=== PATIENT | female | born 1970 | race Caucasian/White ===

== ENCOUNTER 2017-05-22 17:15 | Inpatient (IN) | payer MEDICAID ==
[~2017-05-22] VITALS: Ht 160 cm; Wt 65.9 kg
[2017-05-22 18:09] LABS: BASOPHIL % 0.6 % (0-2); PLATELET COUNT 195 x10^3mcL (130-400)
[2017-05-22 18:13] LABS: CALCIUM 8.9 mg/dL (8.5-10.1); CARBON DIOXIDE 24.3 mmol/L (21-32); CHLORIDE SERUM 101 mmol/L (98-107); CREATININE SERUM 0.6 mg/dL (0.6-1.0); GFR1 > 60 mL/min; GLUCOSE SERUM 351 mg/dL (74-106); POTASSIUM SERUM 3.6 mmol/L (3.5-5.1); SODIUM SERUM 135 mmol/L (136-145)
[2017-05-22 18:17] LABS: ALBUMIN 3.6 g/dL (3.4-5.0); ALKALINE PHOSPHATASE 176 U/L (46-116); ALT/SGPT 79 U/L (14-59); AST/SGOT 52 U/L (15-37); BILIRUBIN TOTAL 0.3 mg/dL (0.20-1.00); TOTAL PROTEIN, SERUM 7.7 g/dL (6.4-8.2)
[2017-05-22] MEDS ORDERED: PROVENTIL0.09 MG/A1 (18:56)
[2017-05-22] MEDS ORDERED: METFORMIN HCL500 MG (18:56)
[2017-05-22 20:17] LABS: FREE T4 1.14 ng/dL (0.76-1.46); FREE THYROXINE INDEX 2.9 ug/dL (1.4-4.5); T4(THYROXINE) 7.5 ug/dL (4.7-13.3)
[2017-05-22 20:18] LABS: T3 TOTAL 0.82 ng/mL
[2017-05-22 20:50] VITALS: BP 130/73
[2017-05-22 20:57] VITALS: Ht 160 cm; Wt 65.9 kg
[2017-05-22 21:13] VITALS: BP 130/73
[2017-05-22 21:55] LABS: CHOLESTEROL/HDL RATIO 3.6; PHOSPHOROUS 3.5 mg/dL (2.5-4.9)
[2017-05-22 23:29] VITALS: BP 119/59
[2017-05-22 23:31] LABS: UA SPECIFIC GRAVITY 1.025 (1.005-1.035); microscopic required? YES; urine erythrocyte 1+ (NEGATIVE)
[2017-05-22 23:40] LABS: AMPHETAMINE QUAL UR NONE DETECTED (NEG <=1000)
[2017-05-23 06:18] VITALS: BP 91/58
[2017-05-23 06:42] LABS: BASOPHIL % 0.5 % (0-2); PLATELET COUNT 187 x10^3mcL (130-400)
[2017-05-23 06:52] LABS: RED CELL DISTRIBUTION WIDTH 15.6 % (11.5-14.5)
[2017-05-23 07:06] LABS: CALCIUM 8.3 mg/dL (8.5-10.1); CARBON DIOXIDE 24.7 mmol/L (21-32); CHLORIDE SERUM 105 mmol/L (98-107); CREATININE SERUM 0.5 mg/dL (0.6-1.0); GFR1 > 60 mL/min; GLUCOSE SERUM 245 mg/dL (74-106); MAGNESIUM 1.8 mg/dL (1.8-2.4); PHOSPHOROUS 3.9 mg/dL (2.5-4.9); POTASSIUM SERUM 3.8 mmol/L (3.5-5.1); SODIUM SERUM 138 mmol/L (136-145)
[2017-05-23 09:43] VITALS: BP 111/55
[2017-05-23 14:09] VITALS: BP 117/64
[2017-05-23 16:54] VITALS: BP 111/59
[2017-05-23 20:00] VITALS: BP 115/64
[2017-05-23 21:33] VITALS: BP 113/69
[2017-05-24 05:43] VITALS: BP 126/74
[2017-05-24 06:24] LABS: BASOPHIL % 0.5 % (0-2); PLATELET COUNT 178 x10^3mcL (130-400)
[2017-05-24 06:46] LABS: CALCIUM 8.8 mg/dL (8.5-10.1); CARBON DIOXIDE 28.1 mmol/L (21-32); CHLORIDE SERUM 105 mmol/L (98-107); CREATININE SERUM 0.5 mg/dL (0.6-1.0); GFR1 > 60 mL/min; GLUCOSE SERUM 292 mg/dL (74-106); POTASSIUM SERUM 3.8 mmol/L (3.5-5.1); SODIUM SERUM 139 mmol/L (136-145)
[2017-05-24 09:00] VITALS: BP 115/72
[2017-05-24 11:20] VITALS: BP 115/72
[2017-05-24 13:56] VITALS: BP 118/68
[2017-05-24] MEDS ORDERED: LIPI10 PO (15:49)
[2017-05-24] MEDS ORDERED: METFORMIN HCL1000 MG PO (15:50)
[2017-05-24] MEDS ORDERED: GOOD SENSE ASPI81 M3 PO (15:51)
[2017-05-24] MEDS ORDERED: LANTI SQ (15:58)
[2017-05-24] MEDS ORDERED: PROAIR HFA8.5 GM IH (15:59)
[2017-05-24 16:52] VITALS: BP 120/68
[2017-05-24] MEDS ORDERED: LOVASTATIN20 MG PO (17:28)
== END 2017-05-24 17:53 | disposition home or self-care (01) | DRG 203 ==
LOC: ED 17:15 → DU 18:59
PROVIDERS: Emergency Medicine; Student in an Organized Health Care Education/Training Program; ADMIT Family Medicine Sports Medicine
DX: M94.0 Chondrocostal junction syndrome [Tietze] (principal); N17.0 Acute kidney failure with tubular necrosis; E11.51 Type 2 diabetes mellitus with diabetic peripheral angiopathy without gangrene; E11.65 Type 2 diabetes mellitus with hyperglycemia; R55 Syncope and collapse; E78.5 Hyperlipidemia, unspecified; J45.909 Unspecified asthma, uncomplicated; D50.9 Iron deficiency anemia, unspecified; Z68.25 Body mass index [BMI] 25.0-25.9, adult; Z79.84 Long term (current) use of oral hypoglycemic drugs
CPT/HCPCS: 82962; 83880; 84439; 90658; 94150; J1885; J2270; J2405; J7030; J7620; J8597; Q0092

== ENCOUNTER 2019-09-03 17:45 | Inpatient (IN) | payer MEDICAID ==
[~2019-09-03] VITALS: Ht 157.5 cm; Wt 55.8 kg
[~2019-09-03 17:45] MED LIST: GOOD SENSE ASPI81 M3 PO; LANTI SQ; LIPI10 PO; LOVASTATIN20 MG PO; METFORMIN HCL1000 MG PO; METFORMIN HCL500 MG; PROAIR HFA8.5 GM IH; PROVENTIL0.09 MG/A1
--- NOTE | 2019-09-03 19:02 | NUR ---
PER PT STS THAT SHE HAS BEEN HAVING JOINT PAIN, FLANK PAIN,HEADACHE SINCE THURSDAY. PT STS THAT SHE FEELS LIKE HER "SUGAR IS HIGH" WHEN SHE FEELS THIS WAY. PT DENIES ANY DYSURIA,FREQUENCY. PT IS AAOX4. SKINS ARE PINK WARM DRY. OT STS THAT SHE IS COMPLIANT WITH HER METFORMIN/INSULIN. PER PT STS THAT SHE FEELS FATIGUED. PER PT STS THAT SHE HAS NOT CHECKED HER BG TODAY. PT PLACED ON CM. VSS. RESP E/U. WILL CONTINUE TO [facility].
--- NOTE | 2019-09-03 19:22 | NUR ---
RECEIVED SBAR FROM CAIN MARRERO. PT AWAKE AND ALERT, IN SUPINE POSITION ON [place]. RESP E/U. WILL CONTIUE POC.
--- NOTE | 2019-09-03 19:28 | NUR ---
REPORT GIVEN TO PARTHA BARLOW TO ASSUME CARE OF PT. PARTHA BARLOW INFORMED NO END TIMES ON NS FLUIDS.
[2019-09-03 19:45] LABS: UA SPECIFIC GRAVITY <=1.005 (1.005-1.035); microscopic required? YES; urine erythrocyte 1+ (NEGATIVE)
--- NOTE | 2019-09-03 19:52 | NUR ---
XRAY AT BEDSIDE.
[2019-09-03 19:58] LABS: PLATELET COUNT 181 x10^3mcL (130-400); RED CELL DISTRIBUTION WIDTH 14.3 % (11.5-14.5)
[2019-09-03 20:01] LABS: BASOPHIL % 0 % (0-2)
[2019-09-03 20:04] LABS: CARBON DIOXIDE 26.6 mmol/L (21-32); CHLORIDE SERUM 94 mmol/L (98-107); CREATININE SERUM 0.7 mg/dL (0.6-1.0); GFR1 > 60 mL/min; GLUCOSE SERUM 448 mg/dL (74-106); POTASSIUM SERUM 4.2 mmol/L (3.5-5.1); SODIUM SERUM 128 mmol/L (136-145); TOTAL PROTEIN, SERUM 7.8 g/dL (6.4-8.2)
[2019-09-03 20:05] LABS: ALKALINE PHOSPHATASE 156 U/L (46-116); ALT/SGPT 17 U/L (14-59); AST/SGOT 16 U/L (15-37); BILIRUBIN TOTAL 1.17 mg/dL (0.20-1.00); CALCIUM 8.7 mg/dL (8.5-10.1)
--- NOTE | 2019-09-03 22:04 | NUR ---
DR LEUNG AT [facility] TO SPEAK WITH PATIENT.
[2019-09-03] MEDS ORDERED: FORTAMET500 M1 PO (22:13)
--- NOTE | 2019-09-03 23:05 | NUR ---
REPORT GIVEN TO CAIN SALCEDO TO ASSUME CARE.
[2019-09-03 23:28] VITALS: BP 114/74
[2019-09-03 23:39] LABS: AMPHETAMINE QUAL UR NONE DETECTED (See below)
--- NOTE | 2019-09-03 23:41 | NUR ---
RECIEVED PT FROM ER, PT ADMIT FOR DM OUT OF CONTROL, GENERALIZED WEAKNESS, PT IS A/O X4, VERBAL RESPONSIVE. LUNG SOUND CLEAR BILATERAL, NO COUGH, NO SOB, PT IS ON TELE 24, NSR, DENY ANY CHEST PAIN OR DISCOMFORT, BOWEL SOUND PRESENT ALL 4 QUADRANTS, NO DISTENTION, NO TENDER. PEDAL PULSE PRESENT BOTH FEET, NO EDEMA, IV AT RIGHT AC, NO LEAKING, NO INFILTRATION. ALL ADLS ASSIST, ALL NEED MET, CALL LIGHT IN REACH, WILL CONTINUE TO MONITOR.
[2019-09-04 06:10] VITALS: BP 122/72
--- NOTE | 2019-09-04 06:23 | NUR ---
TYLENOL GIVEN FOR HEADACHE.
--- NOTE | 2019-09-04 07:00 | NUR ---
PT RESTING WITH EYES CLOSED. NO SOB ON ROOM AIR. NO FACIAL GRIMACING. NO DISTRESS NOTED. SAFETY MEASURES MAINTAINED. CALL LIGHT WITHIN REACH. WILL ENDORSE CONTINUITY OF CARE TO ONCOMING RN.
[2019-09-04 07:03] LABS: BASOPHIL % 0.2 % (0-2); PLATELET COUNT 151 x10^3mcL (130-400); RED CELL DISTRIBUTION WIDTH 14.4 % (11.5-14.5)
--- NOTE | 2019-09-04 07:10 | NUR ---
RECIEVED PT RESTING IN BED WITH NO C/O OF PAIN OR DISTRESS. A/O X4 WITH NO CHAMORRO OR DIZZINESS. TELE #24 CONNECTED TO PT, DENIES ANY CP OR PRESSURE.NS 150ML/HR RUNNING IN RAC, CDI AND PATENT. SAFETY PRECAUTIONS IN PLACE, CALL LIGHT WITHIN REACH, WILL MONITOR.
[2019-09-04 07:13] LABS: CARBON DIOXIDE 22.1 mmol/L (21-32); CHLORIDE SERUM 101 mmol/L (98-107); CREATININE SERUM 0.4 mg/dL (0.6-1.0); GFR1 > 60 mL/min; GLUCOSE SERUM 280 mg/dL (74-106); POTASSIUM SERUM 3.4 mmol/L (3.5-5.1); SODIUM SERUM 135 mmol/L (136-145)
[2019-09-04 07:14] LABS: MAGNESIUM 1.6 mg/dL (1.8-2.4); PHOSPHOROUS 2.1 mg/dL (2.5-4.9)
[2019-09-04 08:20] VITALS: BP 134/79
--- NOTE | 2019-09-04 09:00 | NUR ---
DR CHILDERS NOTIFIED ABOUT POTASSIUM LEVEL OF 3.4 AND CALCIUM OF 8.0, NO NEW ORDERS GIVEN. COVERAGE PO GIVEN PER EMAR FOR MAGNESIUM AND PHOSPHATE.
--- NOTE | 2019-09-04 11:54 | NUR ---
NORCO GIVEN PER EMAR FOR C/O 03/26 CHAMORRO PAIN, WILL REASSESS.
[2019-09-04 13:06] VITALS: BP 159/55
--- NOTE | 2019-09-04 16:44 | NUR ---
NORCO GIVEN PER EMAR FOR C/O 03/26 CHAMORRO , WILL REASSESS.
[2019-09-04 17:30] VITALS: BP 145/69
--- NOTE | 2019-09-04 17:38 | NUR ---
TYLENOL GIVEN PER EMAR FOR ORAL TEMP OF 102.9. DR CHILDERS AT BEDSIDE ASSESSING PT AND DISCUSSING POC. WILL MONITOR.
[2019-09-04 18:20] LABS: BASOPHIL % 0.5 % (0-2); PLATELET COUNT 173 x10^3mcL (130-400); RED CELL DISTRIBUTION WIDTH 13.7 % (11.5-14.5)
--- NOTE | 2019-09-04 18:54 | NUR ---
PT RESTING IN BED WITH INTERMITTENT C/O CHAMORRO, MEDICATED PER EMAR. A/O X4 WITH NO N/V OR DIZZINESS. TELE #24 CONNECTED TO PT, DENIES ANY CP OR PRESSURE. NS 150ML/HR RUNNING IN RAC, CDI AND PATENT. SAFETY PRECAUTIONS IN PLACE, CALL LIGHT WITHIN REACH, WILL ENDORSE TO NIGHT NURSE.
--- NOTE | 2019-09-04 19:55 | NUR ---
RECEIVED REPORT FROM DAY SHIFT RN. PT RESTING IN BED COMFORTABLY. AA&O X4. NO SOB ON ROOM AIR. BREATHING EVEN AND UNLABORED. NO N/V. NO DISTRESS NOTED. IV TO RAC, INTACT. SAFETY MEASURES IN PLACE. BED IN LOWEST POSITION. SIDE RAILS UP X2. DEMONSTRATED HOW TO USE THE CALL LIGHT FOR ASSISTANCE. CALL LIGHT WITHIN REACH.
[2019-09-04 21:19] VITALS: BP 107/72
--- NOTE | 2019-09-04 22:56 | NUR ---
PT C/O HEADACHE 03/26. TORADOL GIVEN.
--- NOTE | 2019-09-05 04:30 | NUR ---
ZOFRAN GIVEN FOR NAUSEA/VOMITING.
--- NOTE | 2019-09-05 05:42 | NUR ---
C/O HEADACHE 04/26. BP 121/61 HR 121 RR 18 TEMP 103.0 SPO2 [address] MANZANO MADE AWARE[address] MEDICATED WITH TORADOL PER ORDER.
[2019-09-05 05:49] VITALS: BP 121/61
[2019-09-05 06:44] LABS: PLATELET COUNT 158 x10^3mcL (130-400); RED CELL DISTRIBUTION WIDTH 14.2 % (11.5-14.5)
[2019-09-05 06:52] LABS: BASOPHIL % 0 % (0-2)
--- NOTE | 2019-09-05 07:00 | NUR ---
PT RESTING WITH EYES CLOSED. BREATHING EVEN AND UNLABORED ON ROOM AIR. NO FACIAL GRIMACING. NO DISTRESS NOTED. RECHECKED TEMP 98.6. SAFETY MEASURES MAINTAINED. ALL NEEDS ATTENDED TO. CALL LIGHT WITHIN REACH. WILL ENDORSE CONTINUITY OF CARE TO DAY SHIFT RN.
--- NOTE | 2019-09-05 07:14 | NUR ---
RECEIVED PATIENT AWAKE/ALERT IN BED, NO DISTRESS NOTED. REPORT HEADACHE IS BETTER AT THIS TIME. TELE #24 ST W/ HR 101. IV TO LFA INTACT AND INFUSING W/ NS @ 80ML/HR, POC EXPLAINED. CONT TO MONITOR.
[2019-09-05 08:25] VITALS: BP 92/53
[2019-09-05 09:09] LABS: SODIUM SERUM 131 mmol/L (136-145)
[2019-09-05 09:12] LABS: CARBON DIOXIDE 22.2 mmol/L (21-32); CHLORIDE SERUM 96 mmol/L (98-107); POTASSIUM SERUM 2.7 mmol/L (3.5-5.1)
[2019-09-05 09:13] LABS: CALCIUM 8.5 mg/dL (8.5-10.1); CREATININE SERUM 0.4 mg/dL (0.6-1.0); GFR1 > 60 mL/min; GLUCOSE SERUM 208 mg/dL (74-106); MAGNESIUM 1.4 mg/dL (1.8-2.4); PHOSPHOROUS 1.9 mg/dL (2.5-4.9)
--- NOTE | 2019-09-05 09:25 | NUR ---
PATIENT RESTING IN BED NO DISTRESS NOTED, ALL PO MEDS ADMINISTERED AND TOLERATED. REPORT TO DR. CHILDERS OF K 2.7 WITH NEW ORDER FOR KRIDER. DTR REMAIN AT BEDSIDE. CONT TO MONITOR.
--- NOTE | 2019-09-05 09:49 | NUR ---
PATIENT RESTING IN BED NO DISTRESS NOTED, VANCOMYCIN IVPB INFUSING AT 130ML/HR TO LFA IV PATENT. NEEDS MET. CONT TO MONITOR.
--- NOTE | 2019-09-05 10:37 | NUR ---
PATIENT RESTING IN BED C/O HEADACHE 05/26, ASKING FOR TORADOL INFORM PATIENT IS NOT DUE, PAGE DR. CHILDERS FOR ALTERNATIVE. TYLENOL 650MG PO ADMINISTERED. CONT TO MONITOR
--- NOTE | 2019-09-05 11:09 | NUR ---
TORADOL 30MG IVP X 1 GIVEN FOR 10/10 CHAMORRO, PATIENT RESTING IN BED, CONT TO MONITOR.
--- NOTE | 2019-09-05 11:30 | NUR ---
DR. BENSON WITH RESIDENTS ROUNDING, PT IN BED NO DISTRESS NOTED, FACE FLUSH NOTED, CHECK T 98.6 DR. BENSON DISCUSS WITH PT AND DTR OF REPEAT CT HEAD W/ CONTRAST AND TELE NEURO CONSULT.
--- NOTE | 2019-09-05 12:17 | NUR ---
PATIENT RESTING IN BED NO DISTRESS NOTED, REPORT CHAMORRO 02/23 AFTER MEDICATED. KRIDER 40MEQ IV W/ LIDOCAINE INFUSING AT 65ML/HR, K 2.7 AND IMITREX 6MG SQ AND DECADRON 10MG IVP ADMINISTERED. INFORM PATIENT WILL ATTEMPT NEW IV SITE FOR CT HEAD W/ CONT. PATIENT VERBALIZE UNDERSTAND. DTR REMAIN AT BEDSIDE.
[2019-09-05 12:34] VITALS: BP 94/54
--- NOTE | 2019-09-05 12:42 | NUR ---
RESTART NEW IV TO LAC #[address] HEAD W/ CONT. PATIENT OFF FLOOR VIA WC WITH TECH FOR CT AT THIS TIME.
--- NOTE | 2019-09-05 13:14 | NUR ---
PATIENT BACK FROM CT IN BED C/O SENSITIVE TO LIGHT, HER HEADACHE IS 7/10 AT THIS TIME. CONNECTED TO IV AND CONT KRIDER AT 65ML/HR. LUNCH TRAY GIVEN TO PATIENT. CONT TO MONITOR.
--- NOTE | 2019-09-05 15:56 | NUR ---
Discount pharmacy card and list to low cost medical clinics given to patient by Meng Nava.
--- NOTE | 2019-09-05 17:23 | NUR ---
PATIENT RESTING IN BED NO COMPLAIN, NO DISTRESS NOTED. GAVE REGULAR 9 UNIT SQ FOR BS 288, DUE MEDS GIVEN. MGRIDER 1GM IVPB INFUSING TO LFA IV PATENT. SETUP TELE NEURO AND SPOKE TO AMMY FOR CONSULT.
[2019-09-05 17:31] VITALS: BP 94/59
--- NOTE | 2019-09-05 17:42 | NUR ---
FOR TELE NEURO DR. PAREDES RECOMMENDED SPINAL TAP TO R/O ENCEPHALITIS.
--- NOTE | 2019-09-05 17:49 | NUR ---
DR. CHILDERS WAS AWARE TELE NEURO DR. PAREDES RECOMMENDED SPINAL TAP TO R/O ENCEPHALITIS AND CN WAS INFORM.
--- NOTE | 2019-09-05 18:03 | NUR ---
P.T. NOTES P.T. EVAL COMPLETED; ENDORSED TO NURSING.
--- NOTE | 2019-09-05 18:25 | NUR ---
PATIENT SITTING UP IN BED EATING HER DINNER, NO COMPLAIN. CALL LIGHT WITHIN REACH.
--- NOTE | 2019-09-05 19:20 | NUR ---
PT SEEN, RESTING IN BED, ALERT AND ORIENTED, DENIES HEADACHE OR DIZZINESS, BREATHING EVEN AND UNLABORED, LUNG SOUNDS CLEAR, ON ROOM AIR WITH NO RESP DISTRESS NOTED, ON TELE#24 STA, DENIES CHEST PAIN, PULSES PALPABLE, NO EDEMA NOTED, MILD GENERALIZED WEAKNESS, ABD SOFT AND FLAT WITH ACTIVE BS, NO BM AT THIS TIME, DENIES ABD PAIN, VOIDING FREELY, DR BEARD MADE AWARE OF THAT LUMBAR PUNCTURE WILL NOT BE DONE TIL TOMORROW AM.
[2019-09-05 22:14] VITALS: BP 94/54
--- NOTE | 2019-09-06 00:32 | NUR ---
DR BABIN AT BEDSIDE AND SULAIMAN PT, NEW ORDER RECEIVED THAT CHANGED ROCEPHIN 1GM DAILY IVPB AND DC ZOVIRAX AND VANCOMYCIN, ORDERS CARRIED OUT.
--- NOTE | 2019-09-06 05:56 | NUR ---
PT ASLEEP BUT EASILY AROUSABLE, SLEPT MOST ON AND OFF WHOLE NIGHT, STILL C/O OF HEADACHE WHILE AWAKE, TORADOL 30MG VIA IVP GIVEN, PT ACCIDENTALLY PULLED OUT THE IV TO LFA, CATH INTACT, IVF INFUSING WELL TO LAC, MORNING BLOOD SUAGR:313 MG/DL WITH RISS 12 UNITS, NO DISTRESS NOTED, WILL KEEP TO MONITOR.
[2019-09-06 06:25] VITALS: BP 102/53
[2019-09-06 06:55] LABS: PLATELET COUNT 206 x10^3mcL (130-400); RED CELL DISTRIBUTION WIDTH 14.3 % (11.5-14.5)
--- NOTE | 2019-09-06 07:07 | NUR ---
BEDSIDE REPORT GIVEN TO PATTIE-RN, ALL QUESTIONS ANSWERED AND CONCERNS ADDRESSED.
[2019-09-06 07:15] LABS: CARBON DIOXIDE 24.4 mmol/L (21-32); CHLORIDE SERUM 100 mmol/L (98-107); CREATININE SERUM 0.5 mg/dL (0.6-1.0); GFR1 > 60 mL/min; GLUCOSE SERUM 314 mg/dL (74-106); POTASSIUM SERUM 3.3 mmol/L (3.5-5.1); SODIUM SERUM 134 mmol/L (136-145)
[2019-09-06 07:16] LABS: CALCIUM 9.2 mg/dL (8.5-10.1); PHOSPHOROUS 3.7 mg/dL (2.5-4.9)
[2019-09-06 07:25] LABS: BASOPHIL % 0 % (0-2)
--- NOTE | 2019-09-06 08:13 | NUR ---
RECEIVED ORDERS FOR LP UNDER FLUORO. PER DR FITCH WOULD NEED DOCUMENTATION OF UNSUCCESSFUL PRIOR ATTEMPT BEFORE RESORTING TO FLUORO EXPOSURE, UNDER "ALARA" GUIDELINES. PATIENT'S NURSE PATTIE NOTIFIED, WILL CONSULT WITH PRIMARY CARE TEAM DURING ROUNDS.
--- NOTE | 2019-09-06 08:29 | NUR ---
NOTIFIED EUGENIA WAN REGARD LUMBAR PUNCTURE ORDER PER [facility]. WANT DOCTOR TO PERFORM LP FIRST BEFORE IR.
[2019-09-06 09:14] VITALS: BP 117/70
--- NOTE | 2019-09-06 09:29 | NUR ---
PATIENT RESTING IN BED AWAKE ALERT IN BED WITH DTR PRASHANT, C/O 04/26 HEADACHE, NO DISTRESS NOTED. ALL DUE MEDS GIVEN. ROCEPHIN IVPB INFUSING AT 100ML/HR, IV PATENT. WILL MEDICATE FOR PAIN.
--- NOTE | 2019-09-06 09:32 | NUR ---
DTR PRASHANT TRANSLATE LUMBAR PUNCTURE TO PATIENT, PATIENT AGREE WITH PROCEDURE AND SIGN THE CONSENT, NO FURTHER QUESTIONS.
--- NOTE | 2019-09-06 12:17 | NUR ---
PATIENT RESTING IN BED C/O 8/10 CHAMORRO, TORADOL IVP GIVEN, DR. CHILDERS CHANGE INSULIN REGIME. GAVE 5 UNITS WITH 12 UNITS ISS REGULAR SQ FOR BS 337. NEEDS MET.
[2019-09-06 12:27] VITALS: BP 96/59
--- NOTE | 2019-09-06 13:42 | NUR ---
PATIENT SAT UP IN CHAIR, DR. CHILDERS AND ER DR. VALDERRAMA AT BEDSIDE PERFORM LUMBAR PUNCTURE ON PATIENT. KIT AND SUPPLIES AT BEDSIDE. MEDICAL STUDENTS AT BEDSIDE AND RN'S. LIDOCAINE OBTAIN AND GIVEN TO DOCTORS. LP SITE TO LOWER BACK C/D/I COVER WITH BANDAIDS. ASSIST PATIENT TO BED, INSTRUCT TO LAY DOWN FOR COUPLE HOURS. DTR REMAIN AT BEDSIDE.
--- NOTE | 2019-09-06 14:39 | NUR ---
DR. CHILDERS IS PAGED TO MADE AWARE THAT BLOOD CULTURE RESULT IS GRAM NEGATIVE BACILLI. WAITING FOR CALLBACK
--- NOTE | 2019-09-06 14:50 | NUR ---
PRIMARY NURSE PATTIE MADE AWARE THAT BLOOD CULTURE RESULT IS GRAM NEGATIVE BACILLI, NO CALLBACK YET FROM DR. CHILDERS.
--- NOTE | 2019-09-06 15:06 | NUR ---
PATIENT RESTING IN BED, C/O LOWER BACK THROBBING PAIN AND HEADACHE. WILL MEDICATE PATIENT FOR PAIN.
[2019-09-06 15:15] LABS: TOTAL PROTEIN CSF 38.2 mg/dL (15-45)
[2019-09-06 15:46] LABS: APPEARANCE CSF CLEAR; COLOR CSF COLORLESS; RBC CSF 3 /cumm (0); WBC CSF 2 /cumm (0-5)
[2019-09-06 16:44] VITALS: BP 94/49; BP 94/59
--- NOTE | 2019-09-06 17:28 | NUR ---
MEDICATED FOR 9/10 CHAMORRO AND GAVE 14 UNITS REGULAR INSULIN SQ FOR BS 270. PATIENT RESTING IN BED, LP SITE C/D/I NO BLEEDING NOTED, INFORM PATIENT AND DTR THAT DOCTOR PLACE PATIENT ON DROPLET ISOLATION PRECAUTIONS. NEEDS MET.
--- NOTE | 2019-09-06 18:33 | NUR ---
PATIENT RESTING IN BED WITH DTR AT BEDSIDE, REPORT CHAMORRO IS TOLERABLE. LOWER BACK LP SITE BANDAID C/D/I NOTED, CARE ENDORSE TO ON-COMING SHIFT.
--- NOTE | 2019-09-06 19:59 | NUR ---
PT SEEN, ASLEEP BUT EASILY AROUSABLE, ALERT AND ORIENTED X 4 AND VERY VERBALLY RESPONSIVE, C/O OF HEADACHE AT TIME, BREATHING EVEN AND UNLABORED, LUNG SOUNDS CLEAR, ON ROOM AIR WITH NO RESP DISTRESS NOTED, ON TELE#24 NSR/ST, DENIES CHEST PAIN, IVF INFUSING WELL, PULSES PALPABLE, NO EDEMA NOTED, MILD GENERALIZED WEAKNESS, ABD SOFT AND FLAT WITH ACTIVE BS, NO BM AT THIS TIME, VOIDING FREELY, NO DISTRESS NOTED, WILL KEEP TO MONITOR.
[2019-09-06 20:29] VITALS: BP 105/59
--- NOTE | 2019-09-06 23:45 | NUR ---
DR BABIN IS HERE, ALL UPDATES GIVEN, NEW ORDER RECEIVED TO DC TAMIFLU PO AND DC DROPLET ISOLATION, ORDERS CARRIED OUT.
--- NOTE | 2019-09-07 04:04 | NUR ---
PT AWAKE AND C/O OF BACK PAIN, NECK PAIN AND HEADACHE 05/26, MORPHINE 2MG VIA IVP ADMINISTERED AND ZOFRAN 4MG VIA IVP GIVEN FOR N/V.
[2019-09-07 05:39] VITALS: BP 106/67
[2019-09-07 06:58] LABS: CALCIUM 8.6 mg/dL (8.5-10.1); CARBON DIOXIDE 25.9 mmol/L (21-32); CHLORIDE SERUM 102 mmol/L (98-107); CREATININE SERUM 0.5 mg/dL (0.6-1.0); GFR1 > 60 mL/min; GLUCOSE SERUM 141 mg/dL (74-106); MAGNESIUM 1.5 mg/dL (1.8-2.4); PHOSPHOROUS 3.8 mg/dL (2.5-4.9); POTASSIUM SERUM 3.1 mmol/L (3.5-5.1); SODIUM SERUM 138 mmol/L (136-145)
--- NOTE | 2019-09-07 07:27 | NUR ---
BEDSIDE REPORT GIVEN TO UCHE-CAIN, ALL QUESTIONS ANSWERED AND CONCERNS ADDRESSED.
--- NOTE | 2019-09-07 07:45 | NUR ---
RECEIVED PATIENT RESTING IN BED, NO ACUTE DISTRESS NOTED. PATIENT C/O OF CONSTANT CHAMORRO, PATIENT STATES IT IS TOLERABLE A THIS TIME. PATIENT REPORT INTERMITENT PAIN TO BACK, REPOSITION PATIENT FOR COMFORT. TELE MONITOR IN PLACE, PATIENT DENIES CP. DENIES SOB, LUNG SOUNDS CTA. NS IV INFUSING TO LAC AT 80ML/HR, IV SITE CDI&PATENT. CALL LIGHT WITHIN REACH, BED IN LOW POSITION, WILL CONTINUE TO MONITOR.
[2019-09-07 09:21] VITALS: BP 92/49
[2019-09-07 10:35] LABS: BASOPHIL % 0.4 % (0-2); PLATELET COUNT 244 x10^3mcL (130-400)
[2019-09-07 10:40] LABS: RED CELL DISTRIBUTION WIDTH 14.9 % (11.5-14.5)
--- NOTE | 2019-09-07 11:30 | NUR ---
DR. CHILDERS MADE AWARE PATIENT K WAS 3.1 AND MAG WAS 1.5, NO FURTHER ORDERS AT THIS TIME. WILL CARRY OUT ANY NEW ORDERS PLACED.
--- NOTE | 2019-09-07 12:17 | NUR ---
Initial Nutrition Assessment: 226T/A ALINA HO IA HR Dx: DM out of control, generalized weakness PMHx: DM and Asthma PSHx: Labs: K 3.1L, BG 141H ALB 3.0L, A1C 12.8H, WBC 13.7H Meds: Colace, D 50%, Humulin, lantus, morphine, zofran Diet: CCHO PO intake since admission: (09/07) breakfast 100% (09/06) dinner, breakfast 70%, lunch 100%, (09/05) dinner 100%, breakfast 40%, (09/04) lunch 60% Ht: 157.48 cm (62") Wt: 55.7 kg (122#) BMI: 22.5 kg/m2 Bed scale: 122# IBW: 110# (50 kg) %IBW: 110 UBW: 142# Age: 48/F Food Allergies: NKFA Skin: intact Jamin: 22 Edema: none GI: Last BM: 09/05 Per H&P, Pt is a 48 years old female with PMH of DM and Asthma who brought from home to ED due to generalized weakness for [address] Note (09/07): Patient was alert and oriented but only Pashto speaking. CLIENT PORTFOLIO MANAGER assisted with translation. Patient said she lost 20# in 1.5 months. Patient said that she tries to follow a diabetic diet. Patient said that she has some stress in life. FNS received consult on 09/05 for 'weight loss'. Per progress note (09/06), blood cultures are positive for gram negative bacilli. isolation precautions were ordered, LP was done, CSF studies were sent. Waiting for recommendation from ID. Pt's headache is better today. Pt did not have fevers for past 24 hours. Problem with: N/V/D/C: none Problems with: Chewing: Swallowing: none Current appetite: good Recent wt change: lost 20# x 1.5 months %wt change: 14 (significant) Vitamin/Supplement use: none Special diet at home: diabetic Physical activity: walking Nutrition education given: DM diet education was provided using [facility] handout on 'Type 2 Diabetes Nutrition Therapy'. Concepts like high fiber foods and portion control were discussed. Patient verbalized understanding and did not have any questions at this time. Food-drug interactions: none Education given: n/a Estimated Nutritional Needs Based on current body weight (55.7 kg) Energy: 4682-0593 kcal/day (25-30 kcal/kg for maintenance) Protein: 56-69 g/day (1.0-1.2 g/kg for maintenance) Fluid: 2777-0470 mL/day (1 mL/kcal) Nutrition Diagnosis: 1. Impaired nutrient utilization related to endocrine dysfunction as evidenced by A1C 12.8H Intervention 1. Recommend continuing CCHO diet. 2. Recommend ONS Glucerna OD to supplement PO. 3. Diabetes diet education provided. Discussed with Dr. Proctor. Monitor/Evaluate Goal: PO intake at least 75% of estimated needs Monitor: PO intake, Labs, GI function F/U in 3-5 days as moderate risk
--- NOTE | 2019-09-07 12:17 | NUR ---
1. Recommend continuing [facility] diet. 2. Recommend ONS Glucerna OD to supplement PO. 3. Diabetes diet education provided. Discussed with Dr. Proctor.
[2019-09-07 13:51] VITALS: BP 98/63
--- NOTE | 2019-09-07 15:24 | NUR ---
PATIENT TEMP WAS 101.2, MEDICATED PATIENT WITH TYLENOL PO PER PROTOCOL (SEE EMAR). PROVIDED PATIENT WITH COOLING MEASURES, CALL LIGHT WITHIN REACH. WILL CONTINUE TO MONITOR AND MANAGE PAIN.
--- NOTE | 2019-09-07 17:20 | NUR ---
PATIENT WAS C/O SEVERE HEADACHE, PATIENT BP WAS 95/[address] CHILDERS, DR. CHILDERS WILL PLACE ORDER FOR IMITREX AND A BOLUS FOR PATIENT. WILL HOLD OFF ON GIVING MORPHINE AT THIS TIME. PATIENT AWARE OF PLAN OF CARE. CALL LIGHT WITHIN REACH, BED IN LOW POSITION, WILL CONTINUE TO MONITOR.
[2019-09-07 17:41] VITALS: BP 95/60
--- NOTE | 2019-09-07 18:36 | NUR ---
PATIENT RESTING IN BED AT THIS TIME, NO ACUTE DISTRESS NOTED. PATIENT MEDICATED WITH IMITREX PO FOR SEVERE HEADACHE. DENIES SOB, ON ROOM AIR. NS BOLUS OF 300 ML INFUSING TO RAC AT THIS TIME, IV SITE CDI&PATENT. ALL NEEDS MET AT THIS TIME. WILL CONTINUE TO MONITORM AND ENDORSE REPORT TO NIGHT RN
--- NOTE | 2019-09-07 19:32 | NUR ---
Pt. received from day shift, currently resting in bed asleep. Pt. easily arousable using verbal stimuli, pt. is a/o x3, able to make needs known, able to follow commands, can speak some Greek, primarily Slovenian speaking, has c/o h/a at this time. Will offer medication as ordered. Pt. BP was low as per day shift, 300 mL bolus given, and is currently running with around 150 mL left. Will continue to monitor pt. Otherwise, pt. stable, no c/o of chest pain, n/v. Pt. safety in check, w/ call light placed within reach, pt. educated on when and how to use call light system, bed set at lowest will continue to monitor.
[2019-09-07 20:50] VITALS: BP 101/57
--- NOTE | 2019-09-07 21:49 | NUR ---
Pt. victor manuel held at this time d/t day shift reporting low BS and pt. noted to not be eating much d/t severe h/a. made aware. Pt. also c/o of severe h/a, given toradol as ordered. Will continue to monitor BP. Pt. has no c/o of dizziness at this time, will continue to monitor.
--- NOTE | 2019-09-08 01:25 | NUR ---
Pt. c/o of pain 03/26, in neck, back and head. Will medicate w/ morphine as ordered.
--- NOTE | 2019-09-08 03:20 | NUR ---
Pt. at this time awake and alert, bouts of sleep throughout the night as per pt. Pt. talking on the phone with family member at times throughout shift, able to make needs known, and still c/o h/a. Pt. given toradol, pt. states that it didn't help much. Toradol was given at 2143. Pt. was given Morphine at 0128, pt. resting in bed, comfortable, easily arousable. Will continue to monitor pt. at this time. Lantus was held d/t blood sugar of 90 and pt. noted and reported to not be eating as much d/t h/a. Pt. was given a sandwhich and some jello throughout the shift, will continue to monitor the pt. at this time.
[2019-09-08 05:33] VITALS: BP 122/73
--- NOTE | 2019-09-08 06:30 | NUR ---
Pt. asleep throughout the shift, easily arousable using verbal stimuli. Pt. a/o and able to make needs known and follow command. Pt. c/o same pain throughout shift, medicated with Toradol at 2143 and Morphine at 0128. Will continue to monitor pt. and endorse to next shift RN.
[2019-09-08 07:27] LABS: BASOPHIL % 0.2 % (0-2); PLATELET COUNT 230 x10^3mcL (130-400); RED CELL DISTRIBUTION WIDTH 14.1 % (11.5-14.5)
[2019-09-08 07:45] LABS: CHLORIDE SERUM 98 mmol/L (98-107); CREATININE SERUM 0.5 mg/dL (0.6-1.0); GFR1 > 60 mL/min; GLUCOSE SERUM 283 mg/dL (74-106); POTASSIUM SERUM 3.5 mmol/L (3.5-5.1); SODIUM SERUM 132 mmol/L (136-145)
[2019-09-08 07:46] LABS: CALCIUM 8.8 mg/dL (8.5-10.1); MAGNESIUM 1.7 mg/dL (1.8-2.4); PHOSPHOROUS 3.3 mg/dL (2.5-4.9)
--- NOTE | 2019-09-08 07:50 | NUR ---
RECEIVED PATIENT. IN BED, AWAKE. NO ACUTE RESP DISTRESS NOTED. PATIENT COMPLAINING OF HEADACHE 05/26. REASSURED PT THAT PAIN MEDICATION WILL BE GIVEN IMMEDIATELY POSSIBLE. IV INTACT AND PATENT. CALL LIGHT WITHIN REACH. SAFETY PRECAUTION IN PLACE. FAMILY AT BEDSIDE. WILL CONTINUE TO MONITOR.
--- NOTE | 2019-09-08 08:01 | NUR ---
PATIENT COMPLAINING OF HEADACHE AND BACK PAIN 05/26. MORPHINE 2MG IVP GIVEN. TOLERATED WELL. WILL CONTINUE TO MONITOR.
[2019-09-08 08:57] VITALS: BP 123/71
--- NOTE | 2019-09-08 09:00 | NUR ---
PATIENT IN BED, SLEEPING. EASILY AROUSABLE. PER PATIENT. MORPHINE MEDICATION EFFECTIVELY LOWERED DOWN THE PAIN. NO ACUTE RESP DISTRESS NOTED AT THIS TIME. NO COMPLAINTS OF PAIN NOTED. IV INTACT AND PATENT. NO REDNESS/ SWELLING NOTED. SAFETY PRECAUTION IN PLACE. CALL LIGHT WITHIN REACH. WILL CONTINUE TO MONITOR.
[2019-09-08 12:28] VITALS: BP 123/71
--- NOTE | 2019-09-08 12:44 | NUR ---
PATIENT COMPLAINING OF NECK PAIN AND HEADACHE 10/10 PAIN. TORADOL 30 MG IVP GIVEN. TOLERATED WELL. WILL CONTINUE TO MONITOR. PATIENT HAS POOR APPETITE DUE TO PAIN. PT USUALLY ABLE TO EAT AFTER PAIN SUBSIDES. WILL REASSESS EFFECTIVENES SOF MEDICATION. PT REMAINS ON ROOM AIR. NO ACUTE RESP DISTRESS NOTED. IV INTACT AND PATENT. NO ERYTHEMA/INFILTRATION NOTED. SAFETY PRECAUTION IN PLACE. CALL LIGHT WITHIN REACH. WILL CONTINUE TO MONITOR.
--- NOTE | 2019-09-08 13:07 | NUR ---
DR BELLO MADE AWARE ABOUT BLOOD CULTURE RESULT- POSITIVE FOR KLEBSIELLA PNEUMONIAE ESBL. NO NEW ORDERS RECEIVED. ATTENDING NURSE CIARA MADE AWARE.
--- NOTE | 2019-09-08 13:15 | NUR ---
REASSESSED PAIN. PER PATIENT, TORADOL IVP EFFECTIVELY LOWERED DOWN PAIN LEVEL TO 6/10. NO ACUTE DISTRESS NOTED. WILL CONTINUE TO MONITOR.
--- NOTE | 2019-09-08 15:40 | NUR ---
PATIENT IN BED, STABLE. NO ACUTE RESP DISTRESS NOTED. REMAINS ON ROOM AIR. NO COMPLAINTS OF PAIN AT THIS TIME. ISOLATION REINFORCED DUE TO POSITIVE KLEBSIELLA PNEUMONIAE BLOOD CULTURE RESULTS. PT MADE AWARE. IV INTACT AND PATENT. CALL LIGHT WITHIN REACH. SAFETY PRECAUTION IN PLACE. WILL CONTINUE TO MONITOR.
--- NOTE | 2019-09-08 16:48 | NUR ---
PATIENT COMPLAINING OF HEADACHE 10/10 PAIN. MORPHINE 2MG IVP GIVEN. TOLERATED WELL. WILL CONTINUE TO MONITOR.
[2019-09-08 17:04] VITALS: BP 127/78
--- NOTE | 2019-09-08 18:30 | NUR ---
PATIENT IN BED, SLEEPING. BREATHING EVEN AND UNLABORED. NO ACUTE RESP DISTRESS NOTED. REMAINS ON ROOM AIR. NO COMPLAINTS OF PAIN AT THIS TIME. IV INTACT AND PATENT. NO ERYTHEMA/SWELLING NOTED. SAFETY PRECAUTION IN PLACE. CALL LIGHT WITHIN REACH. WILL ENDORSE CARE TO MINESWEEPING OFFICER NURSE.
--- NOTE | 2019-09-08 19:15 | NUR ---
RECEIVED PT RESTING IN BED, NO ACUTE DISTRESS NOTED. PT AOX4, DENIES DIZZINESS, (+) CHAMORRO (THORBBING), WILL MEDICATE PER ORDER. MEDSURG PT, DENIES CP. PULSES PALPABLE BILAT, DENIES NUMBNESS/TINGLING IN FEET. PT HAS SCATTERED YELLOWISH COLORED BRUISING A VARIOUS SIZES ON BLE. DENIES PAIN. NO EDEMA NOTED. RESP EVEN AND UNLABORED ON RA, DENIES SOB. ABD SOFT, ROUND, DENIES ABD PAIN. PT VOIDS FREELY, DENIES DYSURIA. MILD GENERALIZED WEAKNESS, SKIN INTACT. IV SITE TO THE LAC PATENT, NS @ 80ML/HR. NO REDNESS, SWELLING OR PAIN NOTED. PT ON MERREM, ALL COMFORT AND SAFETY MEASURES PROVIDED FOR, CALL LIGHT WITHIN REACH, BED IN LOWEST POSITION, WILL CONTINUE TO MONITOR.
--- NOTE | 2019-09-08 19:55 | NUR ---
MEDICATED PT WITH TORADOL 30MG IVP, PT STATES ONLY CHAMORRO, BACK PAIN AND NECK SORENESS. PT REQUESITNG TO HAVE AC TURNED ON, CALL LIGHT WITHIN REACH BED IN LOWEST POSITION, WILL CONTINUE TO MONITOR.
[2019-09-08 21:02] VITALS: BP 136/90
--- NOTE | 2019-09-09 03:00 | NUR ---
PT RESTING IN BED, NO S/S OF PAIN NOTED. IV SITE CONTINUES TO INFUSE NS @ 80ML/HR. NO REDNESS, SWELLING OR PAIN NOTED. ALL COMFORT AND SAFETY MEASURES PROVIDED FOR, CALL LIGHT WITHIN REACH, BED IN LOWEST POSITION, WILL CONTINUE TO MONITOR.
--- NOTE | 2019-09-09 05:20 | NUR ---
PT RESTED IN INTERVALS DURING SHIFT, NO ACUTE CHANGES OCCURRING OVERNIGHT. PT DENIES N/V/D DURING SHIFT, REPORTS CHAMORRO COMES BACK INTERMITTENT TO WHICH THE TORADOL HAS WORKED WELL. ALL COMFORT AND SAFETY MEASURES PROVIDED FOR, CALL LIGHT WITHIN REACH, BED IN LOWEST POSITION, WILL CONTINUE TO MONITOR.
--- NOTE | 2019-09-09 05:30 | NUR ---
UPON ASSESSMENT OF PT, PT APPEARS SWEATY AND UNCOMFORTABLE. CHECKED PT GLUCOSE PER REQUEST, PT BLOOD SUGAR= [phone], PER PT ADJUSTED SLIDING SCALE, PT SHOULD BE ACCUCHECK TIDAC. PER DR. GUPTA, OK TO COVER PT WITH SLIDING SCALE FOR NOW WITHOUT INCLUDING THE ADJUSTED ORDER OF 7 UNITS + PER RISS D/T PT RECEIVED LANTUS AT [address] GUPTA, WILL INQUIRE IN MORNING HUDDLE IF PT SHOULD BE ADJUSTED TO ACCUCHECKS ACHS D/T DM OOC. PT CALM AND COOPERATIVE WITH CARE AT THIS TIME, CALL LIGHT WITHIN REACH, BED IN LOWEST POSITION, WILL CONTINUE TO MONITOR.
[2019-09-09 06:24] LABS: BASOPHIL % 0.3 % (0-2); PLATELET COUNT 264 x10^3mcL (130-400); RED CELL DISTRIBUTION WIDTH 14.2 % (11.5-14.5)
[2019-09-09 06:33] VITALS: BP 105/63
[2019-09-09 07:28] LABS: CALCIUM 9.2 mg/dL (8.5-10.1); CARBON DIOXIDE 24.3 mmol/L (21-32); CHLORIDE SERUM 100 mmol/L (98-107); CREATININE SERUM 0.5 mg/dL (0.6-1.0); GFR1 > 60 mL/min; GLUCOSE SERUM 305 mg/dL (74-106); PHOSPHOROUS 3.7 mg/dL (2.5-4.9); POTASSIUM SERUM 4.1 mmol/L (3.5-5.1); SODIUM SERUM 132 mmol/L (136-145)
[2019-09-09 07:29] LABS: MAGNESIUM 1.9 mg/dL (1.8-2.4)
--- NOTE | 2019-09-09 07:45 | NUR ---
ENDORSED ALL CARE TO DAYSHIFT NURSE, ALL QUESITONS AND CONCERNS ADDRESSED, CALL LIGTH WITHIN REACH, BED IN LOWEST POSITION.
--- NOTE | 2019-09-09 07:58 | NUR ---
PATIENT BREAKFAST TRAY IN ROOM. BLOOD SUGAR RESULT 252, ADMINISTERED INSULIN PER SLIDING SCALE AND ADDITIONAL 7UNITS PER ORDER. TOTAL 16UNITS. VERIFIED BY CARINA BARLOW. ASSISTED PATIENT TO SIT UP AND EAT BREAKFAST CALL LIGHT WITHIN REACH
[2019-09-09 08:59] VITALS: BP 121/79
--- NOTE | 2019-09-09 09:15 | NUR ---
ADMINSTERED MEDICATION PER MAR. PATIENT COMPLAINING OF 8/10 HEADACHE. ADMINSTERED TORADOL PER MAR. CALL LIGHT WITHIN REACH
[2019-09-09 11:51] VITALS: BP 129/76
--- NOTE | 2019-09-09 12:48 | NUR ---
DR CHILDERS ORDERED PICC LINE FOR PATIENT. PATIENT SIGNED CONSENT. CHARGE NURSE TO CALL PICC LINE NURSE
--- NOTE | 2019-09-09 14:37 | NUR ---
PATIENT COMPLAINING OF HEADACHE AND LOWER BACK PAIN, NAUSEA AND STATED SHE VOMITED X1. ADMINSITERED PAIN MEDICATION PER OCT. VSS PRIOR TO MEDICIATION. DAUGHTERS IN ROOM. CALL LIGHT WITHIN REACH
[2019-09-09 15:31] VITALS: BP 143/56
--- NOTE | 2019-09-09 15:48 | NUR ---
PATIENT LAYING ON RIGHT SIDE IN BED, FAMILY AT BEDSIDE. STATING THAT HEADACHE HAS REDUCED, BUT STILL FEELING NAUSEATED. ZOFRAN ALREADY ADMINSITERED. ASSISTED TO REPOSITION. CALL LIGHT WITHIN REACH
[2019-09-09 16:56] VITALS: BP 130/86
--- NOTE | 2019-09-09 18:38 | NUR ---
PICC LINE NURSE AT BEDSIDE. TRAY AND SUPPLIES GIVEN. TIME OUT PERFORMED AND VERIFIED. ULTRA SOUND TECH AT BEDSIDE TO ASSIST.
--- NOTE | 2019-09-09 20:00 | NUR ---
PT RECIEVED AAO REG RESP NO SOB V/S STABLE,IV INFUSING WELL WITH THE SITE PATENT AND INTACT,PT ON ISOLATION,KEPT CLEAN AND DRY TO TOUCH,PT HAS MED LINE TO THE LT HAND WITH SITE INTACT,INITIATED USAGE AND SITE PATENT,CALL LIGHT EASY REACHED WILL CONTINUE TO MONITOR.
[2019-09-09 20:54] VITALS: BP 121/80
[2019-09-10 06:01] VITALS: BP 104/59
--- NOTE | 2019-09-10 06:23 | NUR ---
PT HAD A RESTING NIGHT NO CHANGE AT HIS TIME,WILL CONTINUE TO MONITOR.
[2019-09-10 06:40] LABS: BASOPHIL % 0.3 % (0-2); PLATELET COUNT 367 x10^3mcL (130-400); RED CELL DISTRIBUTION WIDTH 14.1 % (11.5-14.5)
[2019-09-10 07:29] LABS: CALCIUM 9.4 mg/dL (8.5-10.1); CHLORIDE SERUM 102 mmol/L (98-107); CREATININE SERUM 0.5 mg/dL (0.6-1.0); GFR1 > 60 mL/min; GLUCOSE SERUM 156 mg/dL (74-106); MAGNESIUM 2.1 mg/dL (1.8-2.4); PHOSPHOROUS 3.8 mg/dL (2.5-4.9); POTASSIUM SERUM 4.4 mmol/L (3.5-5.1); SODIUM SERUM 134 mmol/L (136-145)
--- NOTE | 2019-09-10 07:30 | NUR ---
AAOX4. NO SOB AT RM AIR. DENIES PAIN AT THIS TIME. IVF NSS AT 80 ML/HR. LAC SITE PATENT AND WITHOUT INFILTRATION. NSG ASSESSMENT DONE. FALL AND SAFETY PRECAUTION REINFORCED. WILL CONTINUE TO MONITOR STATUS.
[2019-09-10 08:19] VITALS: BP 98/64
[2019-09-10 12:01] VITALS: BP 108/68
--- NOTE | 2019-09-10 12:30 | NUR ---
NO NEW ACUTE CHANGES IN STATUS. WILL CONTINUE TO MONITOR STATUS.
[2019-09-10 16:24] VITALS: BP 121/80
--- NOTE | 2019-09-10 18:36 | NUR ---
1620-PT DAUGHTER VISITING. PT REPORTED NAUSEA; ZOFRAN GIVEN ORDERED. ALSO C/O HEADACHE; SUMATRIPTAN GIVEN ORDERED. 1830-PT'S APPETITE IS POOR. DAUGHTER REPORTED "CANNOT HOLD THE FOOD DOWN" AND REQUESTED FOR JELLO.NO FURTHER C/O NAUSEA OR PAIN. NOT IN ANY DISTRESS. WILL CONTINUE TO MONITOR STATUS.
--- NOTE | 2019-09-10 19:20 | NUR ---
RECEIVED REPORT FROM DAY SHIFT NURSE, CIARA BARLOW. PT IS AAOX4. SPEECH IS CLEAR. DENIES CHAMORRO AT THIS TIME. ARABIC/AMHARIC SPEAKING. ABLE TO FOLLOW COMMANDS AND MAKE NEEDS KNOWN. M/S PT. DENIES CHEST PAIN/CHEST PRESSURE. PULSES ARE PALPABLE. NO EDEMA NOTED. BREATHING IS EVEN AND UNLABORED ON RA. LUNG SOUNDS CTA. DENIES SOB. ABD IS SOFT AND NONDISTENDED. BS ACTIVE. DENIES N/V/D AT THIS TIME. VOIDS FREELY, DENIES DYSURIA. GENERALIZED WEAKNESS, AMBULATORY. SKIN INTACT. NO ERYTHEMA NOTED. DENIES PAIN AT THIS TIME. IV TO LFA DRY, INTACT, PATENT, SL. NO ERYTHEMA NOTED. MIDLINE TO ALBERTO DRY AND INTACT, NO ERYTHEMA NOTED. BED IN LOWEST POSITION. CALL LIGHT WITHIN REACH. WILL CONTINUE TO MONITOR.
[2019-09-10 20:19] VITALS: BP 107/67
--- NOTE | 2019-09-10 22:18 | NUR ---
ROUTINE MEDICATIONS GIVEN AND TOLERATED WELL. NO ACUTE DISTRESS NOTED. BREATHING IS EVEN AND UNLABORED ON RA. NO SIGNS OF RESP DISTRESS. DENIES PAIN AT THIS TIME. IV TO LFA D/C D/T INFILTRATION. BED IN LOWEST POSITION. CALL LIGHT WITHIN REACH. WILL CONTINUE TO MONITOR.
--- NOTE | 2019-09-11 00:14 | NUR ---
PT IS RESTING COMFORTABLY IN BED WITH EYES CLOSED, BREATHING IS EVEN AND UNLABORED ON RA. NO SIGNS OF RESP DISTRESS. BED IN LOWEST POSITION. CALL LIGHT WITHIN REACH. WILL CONTINUE TO MONITOR.
--- NOTE | 2019-09-11 02:28 | NUR ---
PT C/O 05/26 CHAMORRO. MEDICATED WITH SUMATRIPTIN PRN PER OCT ORDER. WILL REASSESS AND CHECK EFFECTIVENESS. BREATHING IS EVEN AND UNLABORED ON RA. NO SIGNS OF RESP DISTRESS. BED IN LOWEST POSITION. CALL LIGHT WITHIN REACH. WILL CONTINUE TO MONITOR.
--- NOTE | 2019-09-11 04:28 | NUR ---
PT IS RESTING COMFORTABLY IN BED WITH EYES CLOSED, BUT EASILY AROUSABLE WHEN SPOKEN TO. BREATHING IS EVEN AND UNLABORED ON RA. NO RESP DISTRESS NOTED. BED IN LOWEST POSITION. CALL LIGHT WITHIN REACH. WILL CONTINUE TO MONITOR.
--- NOTE | 2019-09-11 06:00 | NUR ---
PT C/O CHAMORRO. MEDICATED WITH TYLENOL PRN PER OCT ORDER. WILL REASSESS AND CHECK FOR EFFECTIVENESS.
[2019-09-11 06:07] VITALS: BP 112/73
[2019-09-11 06:16] LABS: BASOPHIL % 0.3 % (0-2); RED CELL DISTRIBUTION WIDTH 14.1 % (11.5-14.5)
--- NOTE | 2019-09-11 07:01 | NUR ---
PT SLEPT IN INTERVALS THROUGHOUT THE NIGHT AND COMPLIED WITH NURSING CARE WITH NO ACUTE EVENTS OCCURRING DURING THE SHIFT. COMFORT AND SAFETY MEASURES MAINTAINED. ALL NEEDS ASSESSED AND ATTENDED TO. WILL CONTINUE TO MONITOR AND ENDORSE CARE TO DAY SHIFT NURSE.
[2019-09-11 07:13] LABS: PLATELET COUNT 412 x10^3mcL (130-400)
--- NOTE | 2019-09-11 07:40 | NUR ---
RECEIVED PT FROM FORENSIC SCIENCE TECHNICIAN RN. Larry/JUAN. MED SURG. DENIES CHEST PAIN/PRESSURE. RESPIRATIONS EQUAL AND UNLABORED ON RA. DENIES SOB. PT DENIES CHAMORRO AT THIS TIME AFTER RECEIVING TYLENOL. PT DENIES ANY N/V AT THIS TIME. ALBERTO MIDLINE IN PLACE, PATENT AND INFUSING. NO REDNESS OR SWELLING NOTED, DRESSING CDI. WILL CONTINUE TO MONITOR. CALL LIGHT IN REACH. BED IN LOWEST POSITION.
[2019-09-11 08:25] VITALS: BP 126/76
--- NOTE | 2019-09-11 08:27 | NUR ---
PAGED DR. CASTROED TO CLARIFY ADDITIONAL NURSING ORDER FOR INSULIN, AWAITING CALL BACK.
--- NOTE | 2019-09-11 09:10 | NUR ---
SPOKE WITH DR. ANTHONY REGARDING ADDITIONAL ORDER FOR REGULAR INSULIN. PER DR. ANTHONY PLEASE CONTINUE TO GIVE 7 UNITS OF REGULAR INSULIN PRIOR TO MEALS IN ADDITION TO COVERAGE PER SLIDING SCALE.
[2019-09-11 09:42] LABS: CALCIUM 9.8 mg/dL (8.5-10.1); CARBON DIOXIDE 22.3 mmol/L (21-32); CHLORIDE SERUM 102 mmol/L (98-107); CREATININE SERUM 0.5 mg/dL (0.6-1.0); GFR1 > 60 mL/min; GLUCOSE SERUM 169 mg/dL (74-106); POTASSIUM SERUM 4.5 mmol/L (3.5-5.1); SODIUM SERUM 136 mmol/L (136-145)
--- NOTE | 2019-09-11 10:22 | NUR ---
PT SITTING IN BED. FAMILY AT BEDSIDE. NO ACUTE DISTRESS NOTED. AM MEDS GIVEN, TOLERATED WELL. PT C/O NAUSEA. ADMIN ZOFRAN PER EMAR. ALL NEEDS MET AT THIS TIME. WILL CONTINUE TO MONITOR. CALL LIGHT IN REACH. BED IN LOWEST POSITION.
--- NOTE | 2019-09-11 12:19 | NUR ---
PT SITTING IN BED. FAMILY AT BEDSIDE. NO ACUTE DISTRESS NOTED. PT C/O CHAMORRO, ADMIN TYLENOL PER EMAR WITH NOON MEDS. CHECKED BLOOD SUGAR, 264, 16 UNITS GIVEN (7U + SLIDING SCALE 9 U). PT TOLERATED WELL. PT ASKING ABOUT ARTIFICIAL TEARS BEING ORDERED. PT MADE AWARE THAT MD DID ORDER. EYE DROPS SCHEDULED TO BE GIVEN AT 2100 TODAY. PT OK TO WAIT UNTIL SCHEDULED DOSE. ALL NEEDS MET AT THIS TIME. WILL CONTINUE TO MONITOR. CALL LIGHT IN REACH. BED IN LOWEST POSITION.
[2019-09-11 12:34] VITALS: BP 107/65
--- NOTE | 2019-09-11 15:36 | NUR ---
PT SITTING IN BED WITH FAMILY AT BEDSIDE. PT C/O CHAMORRO AND NAUSEA. MEDICATED WITH SUMATRIPTIN AND ZOFRAN PER EMAR. TOLERATD WELL. IV MERREM INFUSING. NO REDNESS OR SWELLING AT IV SITE. DRESSING CDI. ALL NEEDS MET AT THIS TIME. WILL CONTINUE TO MONITOR. CALL LIGHT IN REACH. BED IN LOWEST POSITION.
[2019-09-11 16:55] VITALS: BP 108/68
--- NOTE | 2019-09-11 19:20 | NUR ---
RECEIEVED REPORT FROM DAY SHIFT NURSE, ILIANA BARLOW. PT IS AAOX4. SPEECH IS CLEAR. C/O 3/10 CHAMORRO, PT STATES IT IS TOLERABLE AT THIS TIME. ENCOURAGED PT TO USE CALL LIGHT WHEN SHE IT BECOMES INTOLERABLE. PT VERBALIZES UNDERSTANDING. KYRGYZ SPEAKING. ABLE TO MAKE NEEDS KNOWN. M/S PT. DENIES CHEST PAIN/CHEST PRESSURE. PULSES PALPABLE. NO EDEMA NOTED. BREATHING IS EVEN AND UNLABORED ON RA. LUNG SOUNDS CTA. DENIES SOB. ABD IS SOFT AND NONDISTENDED. BS ACTIVE. DENIES N/V/D. VOIDS FREELY. DENIES DYSURIA. GENERALIZED WEAKNESS, BUT AMBULATORY. SKIN INTACT. NO ERYTHEMA NOTED. MIDLINE TO ALBERTO DRY, INTACT, PATENT. NO ERYTHEMA NOTED. BED IN LOWEST POSITION. CALL LIGHT WITHIN REACH. WILL CONTINUE TO MONITOR.
[2019-09-11 20:23] VITALS: BP 111/65
--- NOTE | 2019-09-11 21:23 | NUR ---
ROUTINE MEDICATIONS GIVEN AND TOLERATED WELL. NO ACUTE DISTRESS NOTED. BREATHING IS EVEN AND UNLABORED ON RA. NO SIGNS OF RESP DISTRESS. DENIES N/V AT THIS TIME. TYLENOL ADMINSTERED FOR 5/10 CHAMORRO. WILL REASSESS AND CHECK EFFECTIVENESS. BED IN LOWEST POSITION. CALL LIGHT WITHIN REACH. WILL CONTINUE TO MONITOR.
--- NOTE | 2019-09-11 23:31 | NUR ---
PT RESTING COMFORTABLY IN BED WITH EYES CLOSED, BUT EASILY AROUSABLE WHEN SPOKEN TO. BREATHING IS EVEN AND UNLABORED ON RA. NO SIGNS OF RESP DISTRESS. BED IN LOWEST POSITION. CALL LIGHT WITHIN REACH. WILL CONTINUE TO MONITOR.
--- NOTE | 2019-09-12 01:24 | NUR ---
PT RESTING COMFORTABLY IN BED WITH EYES CLOSED BUT EASILY AROUSABLE WHEN SPOKEN TO. BREATHING IS EVEN AND UNLABORED ON RA. NO SIGNS OF RESP. DISTRESS. BED IN LOWEST POSITION. CALL LIGHT WITHIN REACH. WILL CONTINUE TO MONITOR.
--- NOTE | 2019-09-12 03:28 | NUR ---
PT ASLEEP, NO ACUTE CHANGES NOTED. WILL CONTINUE TO MONITOR.
--- NOTE | 2019-09-12 05:03 | NUR ---
PT RESTING COMFORTABLY ASLEEP, NO ACUTE DISTRESS NOTED. WILL CONTINUE TO MONITOR.
[2019-09-12 05:44] VITALS: BP 99/61
--- NOTE | 2019-09-12 05:49 | NUR ---
ROUTINE MEDICATIONS ADMINSTERED, NO ACUTE DISTRESS NOTED. C/O 03/26 CHAMORRO. ADMINISTERED SUMATRIPTIN PER OCT ORDER. WILL REASSESS AND CHECK EFFECTIVENESS. BS 236. WILL CONTINUE TO MONITOR.
--- NOTE | 2019-09-12 06:13 | NUR ---
PT SLEPT IN LONG INTERVALS THROUGHOUT THE NIGHT AND COMPLIED WITH NURSING CARE WITH NO ACUTE EVENTS OCCURRING DURING THE SHIFT. COMFORT AND SAFETY MEASURES MAINTAINED. ALL NEEDS ASSESSED AND ATTENDED TO. WILL CONTINUE TO MONITOR AND ENDORSE CARE TO DAY SHIFT NURSE.
[2019-09-12 06:54] LABS: BASOPHIL % 0.3 % (0-2); RED CELL DISTRIBUTION WIDTH 14.2 % (11.5-14.5)
[2019-09-12 07:04] LABS: PLATELET COUNT 420 x10^3mcL (130-400)
--- NOTE | 2019-09-12 07:23 | NUR ---
RECEIVED REPORT FROM LANRE BARLOW. PATIENT SLEEPING COMFORTABLY IN BED WITH NO NEEDS IDENTIFIED. MIDLINE TO ALBERTO IS PATENT AND INFUSING NS @ 80 ML/HR. NO REDNESS OR PAIN. PT ON ROOM AIR. NO DISTRESS NOTED. ALL QUESTIONS AND CONCERNS ADDRESSED.
[2019-09-12 08:21] LABS: CHLORIDE SERUM 102 mmol/L (98-107); POTASSIUM SERUM 4.2 mmol/L (3.5-5.1); SODIUM SERUM 135 mmol/L (136-145)
[2019-09-12 08:22] LABS: CALCIUM 9.2 mg/dL (8.5-10.1); CARBON DIOXIDE 23.4 mmol/L (21-32); CREATININE SERUM 0.6 mg/dL (0.6-1.0); GFR1 > 60 mL/min; GLUCOSE SERUM 256 mg/dL (74-106)
--- NOTE | 2019-09-12 08:45 | NUR ---
IN TO SEE PATIENT AND ADMINISTER MEDICATION (SEE EMAR) PATIENT RESTING COMFORTABLY IN BED WITH ALL NEEDS MET.
[2019-09-12 09:20] VITALS: BP 114/70
--- NOTE | 2019-09-12 12:03 | NUR ---
1. Recommend continuing CCHO diet with ONS Glucerna QD.
--- NOTE | 2019-09-12 12:03 | NUR ---
Follow-up Nutrition Assessment: 226/A ALINA HO MR Dx: DM out of control, generalized weakness PMHx: DM and Asthma Labs: (09/12) NA 135L, BG 256H ALB 3.0L, A1C 12.8H Meds: Colace, D 50%, Humulin, lactinex, lantus, morphine, zofran Diet: CCHO with ONS Glucerna QD PO Intake: (09/12) Breakfast 30%, (09/08) 50% all meals Weights: (09/07) 55.7 kg, (09/12) 55.8 kg I/Os: (09/11) 2440/800 (1640) Skin: intact Jamin: 21 Edema: none GI: nausea Last BM: 09/10 Note (09/12): Patient was alert and oriented and said that she has good PO however currently she has some nausea that is affecting her intake. Patient said that she has been drinking OSN Glucerna QD. Per progress note (09/11), Patient is staying at the hospital till she completes full 10 days of Meropenem q8h. Estimated Nutritional Needs Based on current body weight (55.7 kg) Energy: 6806-2906 kcal/day (25-30 kcal/kg for maintenance) Protein: 56-69 g/day (1.0-1.2 g/kg for maintenance) Fluid: 7696-5096 mL/day (1 mL/kcal) Nutrition Diagnosis: 1. 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 Recommend continuing CCHO diet with ONS Glucerna QD. Monitor/Evaluate: Goal: Have pt meet at least 75% of estimated needs Monitor: PO intake, Labs, GI function F/U in 2-3 days as high risk 09/14-
[2019-09-12 12:41] VITALS: BP 107/70
[2019-09-12 17:27] VITALS: Ht 157.5 cm; Wt 55.8 kg
[2019-09-12 17:55] VITALS: BP 111/75
--- NOTE | 2019-09-12 19:56 | NUR ---
REPORT GIVEN TO STEVE BARLOW. ALL QUESTIONS AND CONCERNS ADDRESSED. ALL CARES ENDORSED.
--- NOTE | 2019-09-12 20:23 | NUR ---
PT RECIEVED AAO REG RESP NO SOB V/S STABLE,IV INFUSING WELL WITH TE SITE PATENT AND INTACT,NO PAIN REPORTED AT THIS TIME,BED IN THE LOW POSITION AND LOCKED AND WILL CONTINUE TO MONITOR.
[2019-09-12 21:12] VITALS: BP 112/72
--- NOTE | 2019-09-13 00:52 | NUR ---
PT RESTING COMFORTABLY AND WILL CONTINUE TO MONITOR.
[2019-09-13 06:20] VITALS: BP 104/69
--- NOTE | 2019-09-13 06:24 | NUR ---
PT ASLEEP BUT EASILY AROUSABLE, SLEPT MOST OF NIGHT, IVF INFUSING WELL, MORNING BLOOD SUGAR: 114 MG/DL WITH RISS 7 UNITS PER MD ORDER. CONDITION NO CHANGE, NO DISTRESS NOTED, WILL KEEP TO MONITOR.
--- NOTE | 2019-09-13 07:29 | NUR ---
BEDSIDE HANDOFF REPORT GIVEN TO RC-RN, ALL QUESTIONS ANSWERED AND CONCERNS ADDRESSED.
--- NOTE | 2019-09-13 07:38 | NUR ---
REPORT RECEIVED FROM CAIN CAMARENA. PATIENT IS ALERT AND ORIENTED X 4. NO SIGNS OF DISTRESS NOTED. PATIENT ON CONTACT ISOLATION FOR ESBL BLOOD. WILL CONTINUE TO MONITOR. CALL LIGHT WITHIN REACH.
[2019-09-13 09:19] VITALS: BP 108/71
--- NOTE | 2019-09-13 12:53 | NUR ---
Spoke with Dr. Proctor regarding patient's blood sugar 216 prior to lunchtime. Verified insulin coverage regarding set 7 Units Regular Insulin and Sliding Scale Regular Insulin 6 units. Patient aware. Will continue to monitor.
[2019-09-13 14:17] VITALS: BP 142/85
[2019-09-13 18:13] VITALS: BP 114/72
--- NOTE | 2019-09-13 18:45 | NUR ---
PATIENT IN STABLE CONDITION. NO SIGNS OF DISTRESS. ALL NEEDS MET. WILL ENDORSE TO CYLINDER DIE MACHINE OPERATOR RN.
--- NOTE | 2019-09-13 19:40 | NUR ---
RECEIVED PATIENT IN BED LAYING IN BED IN A POSITION OF COMFORT. NO SIGN OF ACUTE DISTRESS NOTED. BREATHING EASY AND NONLABOR SATTING AT 98% RA. ABDOMEN SOFT AND NON TENDER WITH ACTIVE BS. MIDLINE CATH TO ALBERTO INTACT AND CLEAN. WILL CONTINUE TO MONITOR. CALL LIGHT WITHIN REACH.
[2019-09-13 21:20] VITALS: BP 114/64
--- NOTE | 2019-09-13 23:48 | NUR ---
APPEAR TO BE SLEEPING THIS TIME BREATHING EASY AND NONLABOR. ADMISSION ORDERS CARRIED OUT. WILL CONTINUE TO MONITOR.
--- NOTE | 2019-09-13 23:50 | NUR ---
APPEAR TO BE SLEEPING THI TIME, BREATHING EASY AND NONLABOR. WILL CONTINUE TO MONITOR.
--- NOTE | 2019-09-14 05:26 | NUR ---
NO SIGNIFICANT CHANGES IN CONDITION NOTED. ALL NEEDS ATTENDED.
[2019-09-14 06:18] VITALS: BP 103/62
[2019-09-14 06:46] LABS: BASOPHIL % 0.4 % (0-2); RED CELL DISTRIBUTION WIDTH 13.9 % (11.5-14.5)
[2019-09-14 07:14] LABS: CALCIUM 9.3 mg/dL (8.5-10.1); CARBON DIOXIDE 23.2 mmol/L (21-32); CHLORIDE SERUM 103 mmol/L (98-107); CREATININE SERUM 0.5 mg/dL (0.6-1.0); GFR1 > 60 mL/min; GLUCOSE SERUM 151 mg/dL (74-106); POTASSIUM SERUM 4.5 mmol/L (3.5-5.1); SODIUM SERUM 136 mmol/L (136-145)
[2019-09-14 07:37] LABS: PLATELET COUNT 476 x10^3mcL (130-400)
--- NOTE | 2019-09-14 07:58 | NUR ---
REPORTED FROM LAB WBC'S 12.5. SEPSIS PROTOCOL. T.C. TO VENICE. PT IS ON NS 80 CC HOUR AND MERREM IV.
--- NOTE | 2019-09-14 08:00 | NUR ---
ALERT AND ORIENTED. BREATHING FREELY ON RA. CONTACT ISOLATION FOR KEBSIELLA PNEUMONIA BLOOD, ESBL BLOOD. NS INFUSING 80 CC HOUR TO LEFT UPPER ARM MIDLINE. C/O H/A 01/24 THROBBING. INDEPENDENT W ADL'S. CALL LIGHT [facility] FLAK[facility]. VSS.
[2019-09-14 09:48] VITALS: BP 106/71
[2019-09-14 13:49] VITALS: BP 110/72
--- NOTE | 2019-09-14 15:25 | NUR ---
REPORTED FROM LAB PT HAS ESBL TO BLOOD. ON CONTACT ISOLATION AND MERREM IV ABX. 2ND CX CAME BACK ESBL BLOOD.
[2019-09-14 16:20] VITALS: BP 110/73
--- NOTE | 2019-09-14 18:33 | NUR ---
ALERT AND ORIENTED. LYING DOWN. PREFERS ROOM DARK.FREQUENT H/A. RECEIVES IMITREX AND TYLENOL PO.CONTACT ISOLATION FOR ESBL AND KLEBSIELLA PNEUMONIA OF THE BLOOD. INDEPENDENT W ADL'S. VSS. AFEBRILE. MERREPENEM IV BX. CALL LIGHT WITHIN REACH.
--- NOTE | 2019-09-14 19:30 | NUR ---
RECEIVED REPORT FROM DONAVAN BARLOW. PT IS AAOX4 AND VINCENTIAN SPEAKING ONLY. PT HAS EPISODES OF CHAMORRO, BUT DENIES CHAMORRO AND DIZZINESS AT THIS TIME. PT IS MED-SURG AND DENIES CHEST PAIN OR PRESSURE AT THIS TIME. PT PULSES PALPABLE AND CAP REFILL <3 SEC. PT LUNG SOUNDS CTA ON RA. PT BREATHING EVEN AND UNLABORED. PT DENIES SOB OR RESPIRATORY DISTRESS AT THIS TIME. PT ABD SOFT AND NONDISTENDED. PT BOWEL SOUNDS ACTIVE X4. PT DENIES N/V/D/C AT THIS TIME. PT VOIDS FREELY WITH BRP. PT HAS GENERALIZED WEAKNESS. PT SKIN INTACT. PT ALBERTO MIDLINE INTACT. CALL LIGHT WITHIN REACH. BED IN LOWEST POSITION. SIDE RAILS X2 UP. CONTACT PRECAUTIONS MAINTAINED. WILL CONTINUE TO MONITOR.
[2019-09-14 20:28] VITALS: BP 123/66
--- NOTE | 2019-09-15 00:03 | NUR ---
PT SLEEPING, BUT EASILY AROUSABLE. PT BREATHING EVEN AND UNLABORED. NO ACUTE DISTRESS NOTED. CALL LIGHT WITHIN REACH. BED IN LOWEST POSITION. SIDE RAILS X2 UP. WILL CONTINUE TO MONITOR.
--- NOTE | 2019-09-15 03:41 | NUR ---
PT SLEEPING AT THIS TIME. PT BREATHING EVEN AND UNLABORED. NO ACUTE DISTRESS NOTED. CALL LIGHT WITHIN REACH. BED IN LOWEST POSITION. SIDE RAILS X2 UP. WILL CONTINUE TO MONITOR.
[2019-09-15 05:23] VITALS: BP 110/66
--- NOTE | 2019-09-15 05:41 | NUR ---
PT SLEPT THROUGHOUT THE NIGHT. NO ACUTE DISTRESS NOTED DURING THE SHIFT. PT COMPLIED WITH NURSING CARE THROUGHOUT THE SHIFT. COMFORT AND SAFETY MEASURES MAINTAINED DURING THE SHIFT. ALL QUESTIONS AND CONCERNS ADDRESSED. CALL LIGHT WITHIN REACH. BED IN LOWEST POSITION. SIDE RAILS X2 UP. WILL ENDORSE CARE TO DAY SHIFT NURSE. WILL CONTINUE TO MONITOR.
--- NOTE | 2019-09-15 07:30 | NUR ---
SEEN AOX4, NOT IN DISTRESS, MED SURG, PALPABLE PULSES, NO EDEMA, CTA ON BLF, +BS, LAST BM 09/14/19, VOIDS WITH NO DYSURIA, GENERALIZED WEAKNESS, SKIN DRY AND INTACT, NO PAIN AT THIS TIME, NS INFUSING WELL AT 80CC/HR TO ALBERTO , NO REDNESS OR INFILTRAITON. CALL LIGHT WITHINR EACH. BED AT LOWEST POSITION.
[2019-09-15 08:28] VITALS: BP 111/71
--- NOTE | 2019-09-15 08:54 | NUR ---
LACTINEX , PHOSNAK AND TOPIRAMATE PO GIVEN. ARTIFICIAL TEAR DROPS APPLIED TO BOTH EYES.
--- NOTE | 2019-09-15 11:29 | NUR ---
ACCUCHECK DONE WITH CBG 137. NO INSULIN REQUIRED. LACTINEX PO GIVEN. PHOSNAK PO GIVEN.
--- NOTE | 2019-09-15 11:32 | NUR ---
1. Recommend continuing CCHO diet with ONS Glucerna QD.
--- NOTE | 2019-09-15 11:32 | NUR ---
Follow-up Nutrition Assessment: 226/A ALINA HO MR Dx: DM out of control, generalized weakness PMHx: DM and Asthma Labs: (09/14) BG 151H, CREAT 0.5L , A1C 12.8H, WBC 12.5H Meds: Colace, D 50%, Humulin, lactinex, lantus, zofran Diet: CCHO with ONS Glucerna QD PO Intake: (09/13) breakfast 75% (09/12) Breakfast, lunch 30%, dinner 75% (09/08) 50% all meals Weights: (09/07) 55.7 kg, (09/12) 55.8 kg, (09/15) 55.5 kg I/Os: (09/14) 2340/1500 (840) Skin: intact Jamin: 21 Edema: none GI: nausea Last BM: 09/14 RD Note (09/15): Patient was alert and oriented and said that she has good PO and that she had her breakfast this morning. Patient denies any N/V/D/C at this time. Patient said that she has been drinking OSN Glucerna QD. Per progress note (09/12), Pt will be undergoing 6 more days of IV meropenem. Taday is day 4. Topiramate increased to 25 BID Estimated Nutritional Needs Based on current body weight (55.7 kg) Energy: 9685-3107 kcal/day (25-30 kcal/kg for maintenance) Protein: 56-69 g/day (1.0-1.2 g/kg for maintenance) Fluid: 2922-2894 mL/day (1 mL/kcal) Nutrition Diagnosis: 1. 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 Recommend continuing CCHO diet with ONS Glucerna QD. Monitor/Evaluate: Goal: Have pt meet at least 75% of estimated needs Monitor: PO intake, Labs, GI function F/U in 3-5 days as moderate risk 2/2-4
[2019-09-15 11:47] VITALS: BP 107/66
--- NOTE | 2019-09-15 13:07 | NUR ---
PATIENT HAS HEADACHE WITH PS OF 10/10. TYLENOL PO GIVEN. BLOOD CULTURE LAST 09/07/19 SHOWED KLEBSIELLA PNEUMONIAE, MERREM IVPB INFUSING WELL AT 100CC/HR. NO REDNESS OR INFILTRATION.
--- NOTE | 2019-09-15 15:09 | NUR ---
SEEN AOX4, NOT IN DISTRESS, LYING DOWN. NO HEADACHE AT THIS TIME
[2019-09-15 16:28] VITALS: BP 123/66
--- NOTE | 2019-09-15 16:47 | NUR ---
ACCUCHECK DONE WITH CBG 167. REGULAR 10 UNITS INSULIN SQ GIVEN. PHOSNAK AND LACTINEX PO GIVEN.
--- NOTE | 2019-09-15 20:24 | NUR ---
PT SEEN, ASLEEP BUT EASILY AROUSABLE, ALERT AND ORIENTED X 4 AND VERY VERBALLY RESPONSIVE, C/O OF HEADACHE AT TIME, BREATHING EVEN AND UNLABORED, LUNG SOUNDS CLEAR, ON ROOM AIR WITH NO RESP DISTRESS NOTED, MEDSURG PT, DENIES CHEST PAIN, IVF INFUSING WELL, MIDLINE TO ALBERTO, DRESSING C/D/I, PULSES PALPABLE, NO EDEMA NOTED, AMBULATORY WITH STEADY GAIT, , ABD SOFT AND FLAT WITH ACTIVE BS, NO BM AT THIS TIME, VOIDING FREELY, NO DISTRESS NOTED, WILL KEEP TO MONITOR.
[2019-09-15 20:39] VITALS: BP 103/64
--- NOTE | 2019-09-16 00:10 | NUR ---
RECEIVED REPORT FROM NICOL BARLOW. WILL RESUME CARE OF PT AT THIS TIME. PT SLEEPING, BUT EASILY AROUSABLE. PT BREATHING EVEN AND UNLABORED. NO ACUTE DISTRESS NOTED AT THIS TIME. CALL LIGHT WITHIN REACH. BED IN LOWEST POSITION. SIDE RAILS X2 UP. IVF INFUSING WELL AT THIS TIME. WILL CONTINUE TO MONITOR.
--- NOTE | 2019-09-16 02:36 | NUR ---
PT SLEEPING, BUT EASILY AROUSABLE. NO ACUTE DISTRESS NOTED. CALL LIGHT WITHIN REACH. BED IN LOWEST POSITION. SIDE RAILS X2 UP. WILL CONTINUE TO MONITOR.
[2019-09-16 05:19] VITALS: BP 94/64
[2019-09-16 06:11] LABS: BASOPHIL % 0.6 % (0-2); PLATELET COUNT 397 x10^3mcL (130-400); RED CELL DISTRIBUTION WIDTH 13.7 % (11.5-14.5)
--- NOTE | 2019-09-16 06:20 | NUR ---
PT SLEPT THROUGHOUT THE NIGHT, BUT EASILY AROUSABLE. PT COMPLIED WITH NURSING CARE THROUGHOUT THE SHIFT. NO ACUTE DISTRESS NOTED. COMFORT AND SAFETY MEASURES MAINTAINED DURING THE SHIFT. ALL QUESTIONS AND CONCERNS ADDRESSED. CALL LIGHT WITHIN REACH. BED IN LOWEST POSITION. SIDE RAILS X2 UP. CONTACT PRECAUTIONS MAINTAINED. WILL ENDORSE CARE TO DAY SHIFT NURSE. WILL CONTINUE TO MONITOR.
[2019-09-16 06:41] VITALS: BP 108/63
[2019-09-16 06:41] LABS: CALCIUM 9.1 mg/dL (8.5-10.1); CARBON DIOXIDE 21.9 mmol/L (21-32); CHLORIDE SERUM 103 mmol/L (98-107); CREATININE SERUM 0.6 mg/dL (0.6-1.0); GFR1 > 60 mL/min; GLUCOSE SERUM 199 mg/dL (74-106); POTASSIUM SERUM 3.9 mmol/L (3.5-5.1); SODIUM SERUM 135 mmol/L (136-145)
--- NOTE | 2019-09-16 06:42 | NUR ---
PT BP FOR MORNING VITALS 94/64 (74) WITH HR 70. REASSESSED BP. CURRENT BP 108/63 (78) WITH HR 66. WILL CONTINUE TO MONITOR.
--- NOTE | 2019-09-16 07:18 | NUR ---
ENDORSED CARE TO LUCY BARLOW. ALL QUESTIONS AND CONCERNS ADDRESSED.
--- NOTE | 2019-09-16 08:00 | NUR ---
RECEIVED PATIENT AWAKE AND IS PALE AND IS ABLE TO MOVES ALL EXTREMTIES THE LUNGS ARE DIMINISHED AND BOWEL SOUNDS HYPOACTIVE AT THIS TIME. SHE STATES SHE HAS A HEADACHE AND OFFERED AND GAVE TYLENOL ORDERED. PATIENT HAS BEEN AMBULATORY AND SHE IS WITH WEAKNESS AND SHE HAS SKIN INTACT. VITALS AT THIS TIME AT 98.3, 64, 20, 108/65, 94% ON ROOM AIR. PATIENT AHS BEEN RECEIVING MERREN ORDERED AND NO ADVERS REACTION BEEN NOTED. SHELBI HAS HISTORY OF DIABETES AND ASHTMA AND HER BLOOD SUGAR WAS VERY HIGH ON ADMIT. AND BOWEL SOUNDS HYPOACTIVE AT THIS TIME. SHE STATE SHE HAS A HEADACHE AND OFFERED AND GAVE TYLENOL AND WILL MONITOR FOREFFECTIVENESS. BLOOD SUGAR AT 630 AT 191.
[2019-09-16 08:52] VITALS: BP 101/70
--- NOTE | 2019-09-16 12:10 | NUR ---
PATIENT BLOODS SUGAR AT THIS TIME AT 111 AND NO COVERAGE HAS BEEN INDICATED. WILL CONTINUE TO MONITOR INDICATED.
[2019-09-16 12:31] VITALS: BP 120/70
[2019-09-16 17:14] VITALS: BP 106/67
--- NOTE | 2019-09-16 17:57 | NUR ---
GAVE THE PATIENT HER MEDICATIONS AND PATIENT IS DENYING PAIN AT THIS TIME. SHE HAS BEEN EATTING WELL AND THE BLOOD SUGAR AT THIS TIME AT 244 AND GAVE THE 13UNIT SOF REGULAR ORDERED BEING THE 7 PLUS THE SLIDING SCALE. PATIENT IS IN NO ACUTE DISTRESS AT THIS TIME.
--- NOTE | 2019-09-16 19:20 | NUR ---
RECIEVED PT RESTING IN BED WITH NO ACUTE DISTRESS NOTED AT THIS TIME, ASSESSMENT PERFORMED, PT IS A/OX4 NO COMPLAINTS OF CHAMORRO OR DIZZINESS AT THIS TIME, PT DEINES PAIN OR SOB, ALBERTO MIDLINE DRESSING CDI INFUSING NS AT 80ML/HOUR, ALL PT NEEDS ATTENDED TO AT THIS TIME, SAFETY PRECAUTIONS IN PLACE, WILL CONTINUE TO MONITOR.
[2019-09-16 21:09] VITALS: BP 108/68
--- NOTE | 2019-09-17 00:25 | NUR ---
PT RESTING IN BED WITH NO ACUTE DISTRESS NOTED AT THIS TIME WATCHING TV, PT DENIES PAIN OR SOB, ALL PT NEEDS ATTENDED TO AT THIS TIME, SAFETY PRECAUTIONS IN PLACE, WILL CONITNUE TO MONITOR
--- NOTE | 2019-09-17 02:35 | NUR ---
PT RESTING IN BED WITH NO DISTRESS NOTED AT THIS TIME AND EYES CLOSED. NO SIGNS OF PAIN, RESPIRATIONS EVEN AND UNLABORED, ALL NEEDS ATTENDED TO SAFETY PRECAUTIONS IN PLACE, WILL MONITOR
[2019-09-17 05:29] VITALS: BP 119/71
--- NOTE | 2019-09-17 06:16 | NUR ---
PT RESTED THROUGH THE NIGHT AND WATCHED TV ON AND OFF WITH NO ACUTE DISTRESS NOTED DURING CARE, PT DENIED PAIN OR SOB THROUGH SHIFT, PT AMBULATED TO RR WITH STEADY GAIT, ALL PT NEEDS ATTENDED TO THROUGH THE NIGHT, SAFETY PRECAUTIONS REMAINED IN PLACE, WILL CONTINUE TO MONITOR AND ENDORSE CARE
--- NOTE | 2019-09-17 07:25 | NUR ---
RECEIVED REPORT FROM NIGHT NURSE PATIENT SITTING UP IN BED A&O X4 DENIES ANY PAIN AT THIS TIME. CHEST RISE EQUAL AND UNLABORED. MIDLINE IV ON LUE INFUSING ANT INTACT NO REDNESS OR EDEMA. ASSESSMENT COMPLETE AND DOCUMENTED. ALL QUESTONS AND CONCERNS ADDRESSED AT THIS TIME. BED IN LOWEST POSITON CALL LIGHT WITHIN REACH. WILL CONTINUE TO MONITOR.
--- NOTE | 2019-09-17 08:38 | NUR ---
PATIENT SITTING UP IN BED WATCHING TV ADMINISTERED SCHEDULED MEDS PER OCT PT TOLERATED WELL NO ADVERSE REACTIONS NOTED. IV INFUSING PATENT AND INTACT. ALL QUESTIONS AND CONCERNS ADDRESSED AT THIS TIME. BED IN LOWEST POSITION CALL LIGHT WITHIN REACH. WILL CONTINUE TO MONITOR.
[2019-09-17 08:47] VITALS: BP 117/70
--- NOTE | 2019-09-17 11:23 | NUR ---
PATIENT BLOOD SUGAR 135 AT BEDSIDE NO INSULIN COVERAGE NEEDED PER SLIDING SCALE. ADMINISTERED SCHEDULED MEDS PER MAR PATIENT TOLERATED WELL. NO ADVERSE REACTION NOTED. ALL NEEDS ATTENDED TO AT THIS TIME. BED IN LOWEST POSITION CALL LIGHT WITHIN REACH. WILL CONTINUE TO MONIOR.
[2019-09-17 12:24] VITALS: BP 112/76
--- NOTE | 2019-09-17 13:55 | NUR ---
PATIENT C/O HEADACHE 03/26 OFFERED TYLENOL PER OCT. PATIENT TOLERATED WELL NO ADVERSE REACTIONS NOTED. WILL REASSES PAIN IN 1 HOUR. ALL NEEDS ATTENDED TO. BED IN LOWEST POSITION CALL LIGHT WITHIN REACH. WILL COTNINUE TO MONITOR.
--- NOTE | 2019-09-17 15:45 | NUR ---
PATIENT SITTING UP IN A CHAIR WATCHING TV DENIES ANY PAIN AT THIS TIME. ALL NEEDS ATTENDED TO AT THIS TIME. IV INFUSING PATENT AND INTACT N O REDNESS OR EDEMA. SAFETY PRECAUTIONS IN PLACE. WILL CONTINUE TO MONITOR.
[2019-09-17 17:14] VITALS: BP 115/73
--- NOTE | 2019-09-17 18:35 | NUR ---
PATIETN SITTING UP IN BED WATCHING TV. PATIENT DENIES ANY PAIN AT THIS TIME. IV ON LUE PATENT AND INTACT INFUSING NO REDNESS OR EDEMA NOTED. NO S.S OF ANY ACUTE DISTRESS NOTED. ALL QUESTIONS AND CONCERNS ADDRESSED AT THIS TIME. BED IN LOWEST POSITION CALL LIGHT WITHIN REACH. WILL ENDORSE CARE CHERY NIGHT NURSE.
--- NOTE | 2019-09-17 19:25 | NUR ---
RECIEVED PT RESTING IN CHAIR AT BEDISDE WITH NO ACUTE DISTRESS NOTED AT THIS TIME, ASSESSMENT PERFORMED AT THIS TIME, PT IS A/OX4 NO COMPLAINTS OF CHAMORRO OR DIZIZNESS AT THIS TIME, PT DENIES PAIN AT THIS TIME, MIDLINE TO THE ALBERTO, DRESSING CDI, NO REDNESS OR SWELLING, ALL NEEDS ATTENDED TO, SAFETY PRECAUTIONS IN PLACE, WILL CONTINUE TO MONITOR
[2019-09-17 20:36] VITALS: BP 97/71
--- NOTE | 2019-09-18 00:23 | NUR ---
PT RESTING IN BED WITH NO ACUTE DISTRESS NOTED AT THIS TIME, ALL PT NEEDS ATTENDED TO,SAFETY PRECAUTIONS IN PLACE, WILL CONTINUE TO MONITOR
[2019-09-18 06:01] VITALS: BP 103/64
--- NOTE | 2019-09-18 06:23 | NUR ---
PT RESTED COMFORTABLY IN BED WITH NO ACUTE DISTRESS NOTED DURING CARE, PT HAD NO COMPLAINTS OF CHAMORRO OR DIZZINESS, SOB OR PAIN, DURING CARE, ALL PT NEEDS ATTENDED TO SAFETY PRECAUTIONS IN PLACE, WILL COTNINUE TO MONITOR. AND ENDORSE CARE
--- NOTE | 2019-09-18 08:00 | NUR ---
SHIFT ASSESSMENT DONE. PATIENT A/A/OX4; NO ACUTE DISTRESS. IVF OF NS 80CC/HR VIA MIDLINE TO LUE. SITE CLEAN, NO REDNESS/DRAINAGE. PATIENT REPORTED MIDLINE CARE GIVEN ON "THE DAY BEFORE YESTERDAY", BUT ON DRSG MARKED 09/09/19. DENIED PAIN. TOLERATED DIET. CONTACT ISOLATION FOR ESBL (+) BLOOD CULTURE. CALL LIGHT IN REACH.
[2019-09-18 09:18] VITALS: BP 125/74
[2019-09-18 12:32] VITALS: BP 114/72
[2019-09-18 16:23] VITALS: BP 108/70
--- NOTE | 2019-09-18 17:23 | NUR ---
DR ABBIN CAME TO SEE PATIENT, ORDER OF DISCHARGE TO HOME TODAY. CEDRIC MILLARD NOTIFIED.
[2019-09-18 17:25] VITALS: BP 114/72
--- NOTE | 2019-09-18 18:56 | NUR ---
D/C TO HOME PER ORDER. INSTRUCTION GIVEN. PATIENT UNDERSTOOD AND PAPER SIGNED. WAITING FOR MIDLINE REMOVAL. ENDROSED CARE TO [facility] NURSE.
[2019-09-18 20:16] VITALS: BP 112/76
--- NOTE | 2019-09-18 21:26 | NUR ---
MIDLINE TO LUE REMOVED BY DR BELLO, PATIENT IS ACCOMPANIED BY DAUGHTER AND IS DISCHARGED HOME IN STABLE CONDITION.
== END 2019-09-18 21:30 | disposition home or self-care (01) | DRG 720 ==
LOC: ED 17:45 → DU 22:37 → MU 22:37 → DU 23:17 → MU 09-07 14:57
PROVIDERS: Emergency Medicine; Family Medicine; Student in an Organized Health Care Education/Training Program; ADMIT Internal Medicine
PROC: 009U3ZX Drainage of Spinal Canal, Percutaneous Approach, Diagnostic (ICD-10-PCS; principal; 2019-09-06)
DX: A41.59 Other Gram-negative sepsis (principal); E13.00 Other specified diabetes mellitus with hyperosmolarity without nonketotic hyperglycemic-hyperosmolar coma (NKHHC); E43 Unspecified severe protein-calorie malnutrition; E83.39 Other disorders of phosphorus metabolism; E83.42 Hypomagnesemia; E87.1 Hypo-osmolality and hyponatremia; B96.1 Klebsiella pneumoniae [K. pneumoniae] as the cause of diseases classified elsewhere; N39.0 Urinary tract infection, site not specified; E80.6 Other disorders of bilirubin metabolism; E87.6 Hypokalemia; J45.909 Unspecified asthma, uncomplicated; Z16.12 Extended spectrum beta lactamase (ESBL) resistance; Z79.4 Long term (current) use of insulin; Z79.84 Long term (current) use of oral hypoglycemic drugs; Z79.82 Long term (current) use of aspirin; Z68.20 Body mass index [BMI] 20.0-20.9, adult
CPT/HCPCS: 82962; 83880; 87804; 90732; C1751; G0378; J0133; J0696; J1100; J1200; J1815; J1885; J2001; J2185; J2270; J2405; J3030; J3370; J3475; J3480; J7030; J7040; Q0092; Q9967

== ENCOUNTER 2020-04-08 19:03 | Emergency (ER) | payer MEDICAID ==
[~2020-04-08] VITALS: Ht 157.5 cm; Wt 54.4 kg
[~2020-04-08 19:03] MED LIST changes: +FORTAMET500 M1 PO
[2020-04-08 19:14] VITALS: Ht 157.5 cm; Wt 54.4 kg
[2020-04-08 20:48] LABS: PLATELET COUNT 223 x10^3mcL (130-400); RED CELL DISTRIBUTION WIDTH 13.8 % (11.5-14.5)
[2020-04-08 20:54] LABS: CALCIUM 9.4 mg/dL (8.5-10.1); CHLORIDE SERUM 92 mmol/L (98-107); CREATININE SERUM 0.6 mg/dL (0.6-1.0); GFR1 > 60 mL/min; GLUCOSE SERUM 422 mg/dL (74-106); POTASSIUM SERUM 3.3 mmol/L (3.5-5.1); SODIUM SERUM 128 mmol/L (136-145)
[2020-04-08 20:58] LABS: ALBUMIN 3.6 g/dL (3.4-5.0); ALKALINE PHOSPHATASE 224 U/L (46-116); ALT/SGPT 30 U/L (14-59); AST/SGOT 21 U/L (15-37); BILIRUBIN TOTAL 0.8 mg/dL (0.20-1.00); C REACTIVE PROTEIN 4.7 mg/dL (<=0.9); LACTIC DEHYDROGENASE (LDH) 141 U/L (100-190)
[2020-04-08 21:01] LABS: BAND NEUTROPHIL 10 % (0-10); BASOPHIL 0 % (0-2); MONOCYTE 5 % (0-7); SEGMENTED NEUTROPHILS 76 % (37-75)
[2020-04-08 21:02] LABS: PLATELET MORPHOLOGY PLATELETS NORMAL; rbc morphology (normal/abnorm) NORMAL (NORMAL)
[2020-04-08 21:03] LABS: TOTAL PROTEIN, SERUM 8.3 g/dL (6.4-8.2)
[2020-04-08 22:41] LABS: UA SPECIFIC GRAVITY <=1.005 (1.005-1.035); microscopic required? YES; urine erythrocyte TRACE (NEGATIVE)
[2020-04-09 01:11] VITALS: BP 104/54
== END 2020-04-09 01:11 | disposition home or self-care (01) ==
LOC: ED 19:03
PROVIDERS: Emergency Medicine
DX: R07.89 Other chest pain (principal); E11.9 Type 2 diabetes mellitus without complications; I10 Essential (primary) hypertension; Z20.828 Contact with and (suspected) exposure to other viral communicable diseases
CPT/HCPCS: 36600; 82962; 83880; 85378; 87804; J1815; J1885; J7030; Q0092; U0003-CS